=== PATIENT | male | born 1960 | race Caucasian/White ===

== ENCOUNTER → 2019-05-19 | Outpatient (CLI) | payer MEDICAID ==
[~2019-05-19] MED LIST: APIX5TAB PO; ATEN25TA PO; BUPR100T11 PO; ESOM40CA PO; FLEC100T PO; OMNIPAQUE 350 MG/ML, 150 ML BOTTLE ONE; VENL75TA PO
== END | disposition home or self-care (01) ==
LOC: CFH 13:43
PROVIDERS: ATTEND Internal Medicine Cardiovascular Disease
DX: I48.91 Unspecified atrial fibrillation (principal)
CPT/HCPCS: 75572; Q9967

== ENCOUNTER 2019-05-21 06:26 | Observation (INO) | payer MEDICAID ==
[2019-05-19 12:28] LABS: BASOPHILS # (AUTO) 0.06 x10^3/uL (0-0.1); BASOPHILS % (AUTO) 1 % (0-1); EOSINOPHILS # (AUTO) 0.13 x10^3/uL (0-0.4); EOSINOPHILS % (AUTO) 1 % (1-7); LYMPHOCYTES # (AUTO) 1.28 x10^3/uL (1-3.4); LYMPHOCYTES % (AUTO) 12 % (22-44); MD NO; MEAN CORPUSCULAR HEMOGLOBIN 30.6 pg (27.5-34.5); MEAN CORPUSCULAR HGB CONC 33.2 g/dL (33.2-36.2); MEAN CORPUSCULAR VOLUME 91.9 fL (81-97); MEAN PLATELET VOLUME 9.1 fL (7.4-10.4); MONOCYTES # (AUTO) 0.76 x10^3/uL (0.2-0.8); MONOCYTES % (AUTO) 7 % (2-9); NEUTROPHILS # (AUTO) 8.12 x10^3/uL (1.8-6.8); NEUTROPHILS % (AUTO) 79 % (42-75); PLATELET COUNT 269 x10^3/uL (130-400); RED BLOOD COUNT 5.47 x10^6/uL (4.38-5.82)
[2019-05-19 12:37] LABS: ANION GAP 2 mmol/L (5-15); CHLORIDE 109 mmol/L (98-107); CREATININE 0.99 mg/dL (0.7-1.3)
[~2019-05-21] VITALS: Ht 177.8 cm; Wt 78.2 kg
[~2019-05-21 06:26] MED LIST changes: -APIX5TAB PO; -OMNIPAQUE 350 MG/ML, 150 ML BOTTLE ONE
[2019-05-21] MEDS ORDERED: SODIUM CHLORIDE 0.9% 1,000 ML IV SCH (06:47)
[2019-05-21] MEDS ORDERED: SODIUM CHLORIDE 0.9% 1,000 ML IV ONE (07:00)
[2019-05-21 07:04] VITALS: BP 139/89
[2019-05-21] MEDS ORDERED: LIDOCAINE 2%, 20ML ONE (07:28)
[2019-05-21] MEDS ORDERED: MIDAZOLAM 1 MG/ML, 2ML ONE (07:44)
[2019-05-21] MEDS ORDERED: FENTANYL PF 100 MCG/2ML ONE ×2 (07:44→09:29)
[2019-05-21] MEDS ORDERED: HEPARIN 1,000 UNITS/ML, 10ML ONE ×3 (07:46→11:24)
[2019-05-21] MEDS ORDERED: OXYcodone 5 MG/5 ML ORAL.SOL UDC PO PRN (08:00)
[2019-05-21] MEDS ORDERED: EPHEDRINE 50 MG/ML, 1ML IVPush PRN (08:00)
[2019-05-21] MEDS ORDERED: HYDROmorphone 2 MG/ML, 1ML IVPush PRN (08:00)
[2019-05-21] MEDS ORDERED: FENTANYL PF 100 MCG/2ML IV PRN (08:00)
[2019-05-21] MEDS ORDERED: ACETAMINOPHEN 325 MG TABLET PO PRN (08:00)
[2019-05-21] MEDS ORDERED: hydrALAzine 20 MG/ML, 1ML IV PRN (08:00)
[2019-05-21] MEDS ORDERED: LABETALOL 5MG/ML, 20ML IV PRN (08:00)
[2019-05-21] MEDS ORDERED: ONDANSETRON 2MG/ML, 2ML IV PRN (08:00)
[2019-05-21] MEDS ORDERED: MEPERIDINE/PF 25MG/ML,1ML IVPush PRN (08:00)
[2019-05-21] MEDS ORDERED: PROMETHAZINE 25 MG/ML, 1ML IV PRN (08:00)
[2019-05-21] MEDS ORDERED: SUCCINYLCHOLINE 20 MG/ML, 10ML ONE (08:23)
[2019-05-21] MEDS ORDERED: ROCURONIUM 10MG/ML,5ML ONE ×2 (08:23→11:12)
[2019-05-21] MEDS ORDERED: LIDOCAINE-MPF 2% ,5ML ONE (08:23)
[2019-05-21] MEDS ORDERED: DEXAMETHASONE 4 MG/ML, 1ML ONE ×2 (08:23)
[2019-05-21] MEDS ORDERED: PROPOFOL 10 MG/ML, 20ML ONE (08:23)
[2019-05-21] MEDS ORDERED: KETOROLAC 30 MG/1 ML ONE (08:24)
[2019-05-21] MEDS ORDERED: GLYCOPYRROLATE 0.2MG/1ML, 5ML ONE (09:09)
[2019-05-21] MEDS ORDERED: NEOSTIGMINE 1 MG/ML, 10ML ONE (09:09)
[2019-05-21] MEDS ORDERED: PHENYLEPHRINE 10 MG/ML ONE (10:49)
[2019-05-21] MEDS ORDERED: SUGAMMADEX 200 MG/2 ML IVPush ONE (11:30)
[2019-05-21] MEDS: APIXABAN 5 MG TABLET PO SCH ×2 (12:00→20:03)
[2019-05-21] MEDS ORDERED: APIXABAN 5 MG TABLET ONE (12:24)
[2019-05-21 14:43] VITALS: BP 128/76
[2019-05-21] MEDS ORDERED: MORPHINE SULFATE 4 MG/ML, 1ML IVPush PRN (19:30)
[2019-05-21 20:01] VITALS: BP 99/63
[2019-05-22 00:17] VITALS: BP 126/66
[2019-05-22] MEDS ORDERED: VENLAFAXINE 75MG TABLET PO SCH (09:00)
[2019-05-22] MEDS ORDERED: ATENOLOL 25 MG TABLET PO SCH (09:00)
[2019-05-22] MEDS ORDERED: PANTOPROZOLE 40MG TABLET PO SCH (09:00)
[2019-05-22] MEDS ORDERED: BUPROPION SR 150 MG TABLET PO SCH (09:00)
[2019-05-22] MEDS ORDERED: APIX5TAB PO (09:26)
[2019-05-22 09:30] VITALS: BP 106/69
[2019-05-22] MEDS: APIXABAN 5 MG TABLET PO SCH (10:12)
== END 2019-05-22 12:20 | disposition home or self-care (01) ==
LOC: CACL 06:26 → ORIP 11:38 → 5SO 13:00 → DCLOUNGE 05-22 12:12
PROVIDERS: ADMIT Internal Medicine Cardiovascular Disease; ATTEND Internal Medicine Cardiovascular Disease
DX: I48.91 Unspecified atrial fibrillation (principal); F17.200 Nicotine dependence, unspecified, uncomplicated
CPT/HCPCS: 36415; 71046; 80048; 85025; 85347; 93306; 93312; 93321; 93325; 93613; 93655; 93656; 93657; 93662; C1730; C1732; C1759; C1766; C1893; C1894; G0378; J0330; J1100; J1644; J1885; J2250; J2370; J2704; J3010; J3490; J2710